=== PATIENT | female | born 1995 | race Caucasian/White ===

== ENCOUNTER 2017-05-03 21:07 | Emergency (ER) | payer BC ==
[~2017-05-03] VITALS: Ht 162.6 cm; Wt 52.7 kg
[2017-05-03 21:47] VITALS: Ht 162.6 cm; Wt 52.7 kg
[2017-05-03] MEDS ORDERED: DIAZEPAM 5MG TAB PO STA (23:37)
[2017-05-03] MEDS ORDERED: KETOROLAC TROMETHAMINE 60 MG/2 ML VIAL IM STA (23:37)
[2017-05-03] MEDS ORDERED: BCPILLS PO (23:39)
[2017-05-04] MEDS ORDERED: NAPR-1169 PO (00:20)
[2017-05-04] MEDS ORDERED: DIAZ-165 PO (00:20)
[2017-05-04] MEDS ORDERED: DIAZEPAM 5MG TAB PO STA (00:26)
--- NOTE | 2017-05-04 00:26 | EMERGENCY ROOM VISIT NOTE ---
ED Visit Note First contact with patient: 23:16 CHIEF COMPLAINT: Neck pain HISTORY OF PRESENT ILLNESS: This 21-year-old female patient presents to the emergency department, ambulatory, complaining of pain in the right side of the neck which began while working out. The patient states she was lifting, and did not notice any specific injury, but when she stood up and stretched her back and neck, she noticed an immediate spasm and pain in the right side of the neck radiating towards the shoulder. The patient rates the pain as sharp and 7/ 10. The patient has taken 600 mg ibuprofen for the pain without significant improvement. The patient does not have a history of previous neck problems. The patient does not have pain of the arms and shoulders. The pain does radiate towards the right scapula, but does stay in the back and neck region. The patient denies numbness and tingling. The patient denies chest pain or shortness of breath. There was no head injury and no loss of consciousness. The patient denies headache, blurred vision, abdominal pain, nausea, or vomiting. The patient denies change in personality. REVIEW OF SYSTEMS: A 10 system review of systems was completed with positives and pertinent negatives listed in the HPI. ALLERGIES: Vicodin, latex MEDICATIONS: OCPs PMH: None SOCIAL HISTORY: The patient lives locally with her roommates. She is a [employer] student. She denies drug, alcohol, tobacco use. PHYSICAL EXAM: VITALS: Vitals are noted on the nurse's note and reviewed by myself. Vital signs stable. GENERAL: This is a 21-year-old female, in no acute distress, nondiaphoretic, well-developed well-nourished. SKIN: Capillary reflex less than 2 seconds. HEENT: Normocephalic. PERRLA. EOMI. Nares patent. Mucous membranes moist. Neck is supple without nuchal rigidity. Cervical spine is mildly tender to palpation. The patient does have significant tenderness of the paraspinal muscles on the right. There is no lymphadenopathy. MUSCULOSKELETAL: The patient has full range of motion of the bilateral arms. Strength 5/5 of the bilateral upper extremities. The patient has tenderness with any attempts at movement of the neck. She is most comfortable with her head gazing slightly to the left. NEURO: Patient was alert and oriented to person place and time. Normal sensation to light and sharp touch. No focal neurologic deficits. EMERGENCY DEPARTMENT COURSE: I examined the patient. She was given 5 mg Valium p.o. and 60 mg Toradol IM. X-ray of the cervical spine was ordered and reviewed by myself. This did not show any obvious acute fractures, dislocations , or subluxations. This will be reviewed by radiologist tomorrow morning. The patient was reassessed and was minimally feeling better. The patient was feeling well enough to go home. She will be started on anti-inflammatory medications and muscle relaxers. She will be given a home pack of Valium until she can get her prescription tomorrow. She was encouraged to follow-up with [facility] later this week for ongoing evaluation and recheck. Discharge instructions reviewed, and patient was discharged home in good condition. I attest that I have personally reviewed the patient's current medication list. Patient was found to have normal blood pressure on screening and does not require follow-up. Differential diagnosis includes cervicalgia, torticollis, fracture, subluxation , dislocation, abscess, infection, malignancy, and others DIAGNOSIS: Torticollis Current/Historical Medications Scheduled Control Pills ( Control Pills), 1 TAB PO DAILY Naproxen (Naprosyn), 500 MG PO BID Scheduled PRN Diazepam (Valium), 5 MG PO QID PRN for Muscle Spasms Allergies Coded Allergies: Acetaminophen (Verified Allergy, Unknown, Throat swelling and vomiting, ) Hydrocodone (Verified Allergy, Unknown, Throat swelling and vomiting, 05/03) Latex (Verified Allergy, Unknown, Unknown, 05/03/17) Vital Signs Date Time Temp Pulse Resp B/P (MAP) Pulse Ox O2 Delivery O2 Flow Rate FiO2 05/04/17 00:28 72 20 117/69 98 Room Air 05/03/17 21:47 37.0 99 20 121/83 100 Room Air Medications Administered Medications (Trade) Dose Ordered Sig/Alta Route Start Time Stop Time Status Last Admin Dose Admin Diazepam (Valium Tab) 5 mg NOW STAT PO 05/03/17 23:37 05/03/17 23:38 DC 05/03/17 23:37 5 MG Ketorolac Tromethamine (Toradol Inj) 60 mg NOW STAT IM 05/03/17 23:37 05/03/17 23:38 DC 05/03/17 23:37 60 MG Departure Information Impression Primary Impression: Torticollis, acute Dispostion Home / Self-Care Condition GOOD Prescriptions Naproxen (Naprosyn) 500 Mg Tab 500 MG PO BID, #60 TAB Prov: Janki Roblero PA-C 05/04/17 Diazepam (Valium) 5 Mg Tab 5 MG PO QID Y for Muscle Spasms for 3 Days, #12 TAB Prov: Janki Roblero PA-C 05/04/17 Referrals [facility] (PCP) Patient Instructions My [facility], [place] Additional Instructions You have been treated in the Emergency Department for Neck Pain. You have received pain medicine in the emergency department which impairs your ability to operate a vehicle. It is illegal for you to drive after receiving these medicines. You have been prescribed Valium 1 tab orally, three to four times per day. Do NOT exceed 20 mg (4 tabs) per day. Take your first dose at bedtime as it can make you drowsy. Always take all medications as prescribed. For pain control, you can use the following [id number] medicines (if >12 yo): Naproxen may be used for fever or pain. Use 500mg every twelve hours as needed. Take with food. Avoid using more than 1000mg in a 24 hour period. Do not use 1000mg per day for more than three consecutive days without physician direction. Prolonged inappropriate use can lead to stomach upset or ulcers. As discussed, do not take any other NSAIDs including ibuprofen, Advil, Aleve, Motrin, or other anti-inflammatory medications while on this drug. (AND/OR) Acetaminophen(Tylenol) may be used for fever or pain. Use 1000mg every six hours as needed. Avoid using more than 3000mg in a 24 hour period. If this is an acute injury, ice can be applied to the area of pain for the first 3 days to help decrease pain and inflammation. After the first 3 days, a heating pad can be used over the area for continued soothing relief. You should schedule a follow-up appointment in 2-3 days with your Primary Care Provider/[facility] for further evaluation and treatment of your neck pain. Return to the Emergency Department if your current symptoms worsen despite treatment course outlined above, or if you develop any of the following symptoms : intractable pain despite aforementioned treatment course, facial droop, slurred speech, unilateral weakness, or worsening of her current symptoms. Work Instructions Return To Work: 1 day
[2017-05-04] MEDS ORDERED: EMPTY 8 DRAM VIAL ONE (00:34)
[2017-05-04 00:43] VITALS: BP 117/69; PULSE 72; TEMP 37; O2SAT 98
--- NOTE | 2017-05-04 07:38 | DIAGNOSTIC IMAGING REPORT ---
CERVICAL SPINE 2 OR 3 VIEWS CLINICAL HISTORY: Neck pain. COMPARISON STUDY: No previous studies for comparison. FINDINGS: Alignment of the cervical spine is anatomic. Vertebral body heights are maintained. There is no fracture or suspicious lesion. Disc spaces are preserved. Facet joints appear intact. IMPRESSION: No acute cervical spine fracture or subluxation. Electronically signed by: Karl Bonilla M.D. 05/04/2017 7:37 AM Dictated Date/Time: 05/04/2017 7:36 AM
== END 2017-05-04 00:44 | disposition home or self-care (01) ==
LOC: C.EDB 21:09
DX: M43.6 Torticollis (principal); Z91.040 Latex allergy status; Z88.5 Allergy status to narcotic agent